=== PATIENT | female | born 1955 | race Caucasian/White ===

== ENCOUNTER → 2020-02-25 | Outpatient (CLI) | payer MEDICARE, OTHER ==
--- NOTE | 2020-02-25 15:48 | RAD ---
EXAM DESCRIPTION: Shoulder,Right 2 or More Views CLINICAL HISTORY: PAIN IN RIGHT SHOULDER COMPARISON: None. TECHNIQUE: 4 views right FINDINGS: Degenerative changes are observed in the acromioclavicular joint. There is evidence of calcific tendinitis. Mild osteopenia is observed. No fracture or dislocation is seen. 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 There is evidence of calcific tendinitis in the glenohumeral joint. Electronically signed by: Emmanuel Joshi MD 02/25/2020 3:46 PM CDT
== END ==
LOC: RAD 09:40
PROVIDERS: ATTEND Orthopaedic Surgery
DX: Z00.00 Encounter for general adult medical examination without abnormal findings (principal)

== ENCOUNTER → 2020-03-18 | Outpatient (CLI) | payer MEDICARE | LOC: LAB.O 11:20 | PROVIDERS: ATTEND Orthopaedic Surgery | DX: Z01.818 Encounter for other preprocedural examination (principal) ==

== ENCOUNTER → 2020-08-26 | Outpatient (CLI) | payer MEDICARE ==
--- NOTE | 2020-08-29 10:46 | MAM ---
EXAM DESCRIPTION: 3D Screening BILATERAL : Digital Mammography. CLINICAL HISTORY: 64 years Female SCREEN .. No complaints and no family history of breast cancer. Menarche age 15. No childbirth. Menopause age 23. HRT 5 mm ago.. Lifetime risk of developing breast cancer (Tyrer-Cuzick model)(%): 7.7. COMPARISON: Baseline study at this facility. No prior reports available. TECHNIQUE: Bilateral CC and MLO projection full-field images, digital tomosynthesis mammographic technique. Bilateral digital 2-D full-field MLO images. CAD available for 2-D images. FINDINGS: The breast parenchymal density pattern is: Scattered areas of fibroglandular density. Bilateral solitary microcalcifications and macrocalcifications. Axillary nodes. Mostly circumscribed soft tissue mass, 9 cm from the nipple 7:00-8:00 middle third lower outer quadrant. No skin thickening or nipple retraction No focal, stellate mass or density, focal asymmetry , and no suspicious microcalcifications left breast. IMPRESSION: BI-RADS CATEGORY: 0 - INCOMPLETE- Need additional imaging evaluation. RECOMMENDATIONS: FOLLOW-UP: Recall for additional imaging: Directed right breast ultrasound to the region of interest. Optional right breast digital diagnostic tomosynthesis depending on ultrasound findings.. Written communication concerning the IMPRESSION and Follow-up, will be mailed to the patient and referring health care provider. Electronically signed by: Osmel Poe MD 08/29/2020 10:45 AM [facility]
== END ==
LOC: MAMMO 12:29
PROVIDERS: ATTEND Emergency Medicine
DX: Z12.31 Encounter for screening mammogram for malignant neoplasm of breast (principal)

== ENCOUNTER → 2020-10-10 | Outpatient (CLI) | payer MEDICARE ==
--- NOTE | 2020-10-10 14:15 | RAD ---
EXAM DESCRIPTION: Knee,Right Complete CLINICAL HISTORY: 64 years Female, PAIN IN RIGHT KNEE COMPARISON: None. Findings: Four views/radiographs Location: Right knee No acute fracture or dislocation. Severe right knee osteoarthritis. Osteopenia. No significant joint effusion. IMPRESSION: No evidence of acute process in the right knee. Electronically signed by: Charli Simental MD 10/10/2020 2:13 PM [facility]
--- NOTE | 2020-10-10 17:46 | RAD ---
EXAM DESCRIPTION: Pelvis CLINICAL HISTORY: 64 years Female, HIP PAIN COMPARISON: None. Findings: One view(s)/radiograph(s) Spinal fusion hardware. Symmetric degenerative changes in the sacroiliac joints. Osteopenia. Mild bilateral hip osteoarthritis. No acute fracture or dislocation. No focal soft tissue swelling. IMPRESSION: Degenerative changes in the pelvis. No acute osseous abnormality. Electronically signed by: Charli Simental MD 10/10/2020 5:45 PM [facility]
== END ==
LOC: RAD 09:18
PROVIDERS: ATTEND Orthopaedic Surgery
DX: M16.0 Bilateral primary osteoarthritis of hip (principal); M47.898 Other spondylosis, sacral and sacrococcygeal region; M25.561 Pain in right knee

== ENCOUNTER → 2020-10-21 | Outpatient (CLI) | payer MEDICARE ==
--- NOTE | 2020-10-21 15:21 | US ---
EXAM DESCRIPTION: Breast,Right: Ultrasound. CLINICAL HISTORY: 64 yearsFemaleABNORMAL MAMMO COMPARISON: Bilateral screening digital breast tomosynthesis August 2020. TECHNIQUE: Transcutaneous scanning of the right breast utilizing luo-scale and Doppler modes. Scanning performed by the logistics technician ; observation by Dr. Poe. FINDINGS: Scanning of the lower outer quadrant of the middle third of the right breast. Mostly fatty tissue with minimal fibroglandular tissue. No dominant solid mass, no distinct cyst, no fluid collection, no large calcifications. The overlying skin changes. IMPRESSION: Benign exam. BIRAD CATEGORY: 2 BENIGN FINDINGS. RECOMMENDATIONS: FOLLOW UP: Routine digital bilateral mammographic screening, one year interval from August 2020. (August 2021). Written communication explaining the IMPRESSION and follow-up, will be mailed to the patient and referring health care provider. The FINDINGS and the FOLLOW-UP plan were reviewed in person with the patient after the examination. According to the [employer], yearly mammograms are recommended starting at age 40 and continuing as long as a woman is in good health. Any breast change noted on a breast self-exam should be reported promptly to the patient's healthcare provider. Breast MRI is recommended for women with an approximately 20-25% or greater lifetime risk of breast cancer, including women with a strong family history of breast or ovarian cancer and women who have been treated for Hodgkin's disease. A negative mammographic report should not delay tissue diagnosis in patients with significant clinical history or physical findings. Extremely dense breast tissue limits the sensitivity of digital mammography. Electronically signed by: Osmel Poe MD 10/21/2020 3:19 PM [facility]
== END ==
LOC: MAMMO 09:55
PROVIDERS: ATTEND Family Medicine
DX: R92.8 Other abnormal and inconclusive findings on diagnostic imaging of breast (principal)